=== PATIENT | female | born 1955 | race Caucasian/White ===

== ENCOUNTER → 2016-07-04 | Outpatient (CLI) | payer OTHER ==
[~2016-07-04] MED LIST: FLUO5CRE TOP; FLUT0.15 NAE; METH10TA6 PO
[2016-07-04 16:39] LABS: THYROID STIMULATING HORMONE 0.531 uIu/ml (0.300-4.500)
== END | disposition home or self-care (01) ==
LOC: C.LAB 13:35
PROVIDERS: ATTEND Internal Medicine Endocrinology, Diabetes & Metabolism
DX: E05.90 Thyrotoxicosis, unspecified without thyrotoxic crisis or storm (principal)

== ENCOUNTER 2016-07-24 10:04 | Inpatient (IN) | payer OTHER ==
[2016-07-04 13:38] VITALS: Ht 166.4 cm; Wt 64.6 kg
--- NOTE | 2016-07-04 14:13 | PAT Medication Instructions ---
Service Date Jul 04, 2016. Current Home Medication List Fluorouracil (Topical) (Efudex), 1 APPLN TOP BID Fluticasone Propionate (Nasal) (Flonase Allergy Relief), 2 SPRAY CONOR DAILY PRN for PRN Methimazole (Methimazole), 10 MG PO QAM Medication Instructions For Your Scheduled Surgery - Hold the following medications 24 hours prior to surgery: Fluorouracil (Topical) (Efudex), 1 APPLN TOP BID - Take the following medications the morning of surgery with a sip of water OTHERWISE NOTHING TO EAT OR DRINK AFTER MIDNIGHT: Methimazole (Methimazole), 10 MG PO QAM Fluticasone Propionate (Nasal) (Flonase Allergy Relief), 2 SPRAY CONOR DAILY PRN for PRN If you have any questions please call us at [phone] or [phone] or [phone]
[2016-07-04 15:45] LABS: BASO % 0.5 %; BASO ABS # 0.03 K/uL (0-0.2); COMPLETE YES; EOS % 2.2 %; HEMATOCRIT 46.2 % (37-47); IG% 0.2 %; LYMPH ABS # 1.86 K/uL (1.2-3.4); MEAN CELL VOLUME 89.7 fL (80-100); MEAN CORPUSCULAR HEMOGLOBIN 29.7 pg (25-34); MEAN CORPUSCULAR HGB CONC 33.1 g/dl (32-36); MEAN PLATELET VOLUME 9.7 fL (7.4-10.4); MONO % 4.8 %; NEUT % 58.3 %; PLATELET COUNT 261 K/uL (130-400); RED BLOOD COUNT 5.15 M/uL (4.2-5.4); WHITE BLOOD COUNT 5.47 K/uL (4.8-10.8)
[2016-07-04 16:24] LABS: BUN/CREATININE RATIO 14.6 (10-20); CREATININE 0.69 mg/dl (0.60-1.20); POTASSIUM 3.8 mmol/L (3.5-5.1)
[2016-07-04 16:41] LABS: CALCIUM 9.6 mg/dl (8.5-10.1)
[~2016-07-24] VITALS: Ht 166.4 cm; Wt 64.6 kg
[2016-07-24] VITALS (9 sets, daily range): BP systolic 132–153; BP diastolic 56–83; PULSE 84–116; TEMP 36.4–37; O2SAT 96–100
[~2016-07-24 10:04] MED LIST changes: +CEFAZOLIN 2000 MG/60 ML D5W IV SCH; +LACTATED RINGER'S 1000ML 1,000 ML IV SCH; +LIDOCAINE HCL 2% 2 ML VIAL (20MG/ML) ONE; +MIDAZOLAM HCL 1 MG/ML 2ML VIAL ONE; +ONDANSETRON INJ 2 MG/ML 2 ML VIAL ONE; +PROPOFOL IV EMULSION 10 MG/ML 20 ML VIAL IV ONE
[2016-07-24] MEDS ORDERED: MIDAZOLAM HCL 1 MG/ML 2ML VIAL ONE (10:49)
[2016-07-24] MEDS ORDERED: FENTANYL CITRATE INJ 50 MCG/1 ML 2 ML VIAL ONE (10:50)
[2016-07-24] MEDS ORDERED: HYDROmorphone INJ 2 MG/ML SYR/VIAL ONE (10:50)
--- NOTE | 2016-07-24 11:25 | History & Physical Bridge Note ---
H&P Re-Evaluation Bridge Note: I have examined the patient, reviewed the History & Physical and in the interval since the performance of the History & Physical I have noted the following changes of clinical significance: No changes noted
--- NOTE | 2016-07-24 11:28 | History and Physical ---
History & Physical Date July 24, 2016. Chief Complaint GRAVES DISEASE History of Present Illness The patient is a 61 year old female with complaints of GRAVES DISEASE, MULTINODULAR GOITER, AND COMPRESSIVE SYMPTOMATOLOGY. 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 PSH: S/P SKIN BX, S/P T&A, S/P TUBAL LIGATION Additional History Hepatic Disease: No Endocrine Disorder: No Kidney Disease: No Hypertension: No Heart Disease: No Bleeding Tendencies: No Infectious Diseases: No Allergies Coded Allergies: Adhesives (Verified Allergy, Unknown, REDNESS, ITCHING, IRRITATION, ) Bacitracin (Verified Allergy, Unknown, REDDNESS, IRRITATION, 07/24/16) Molds and Smuts (Verified Allergy, Unknown, SEVERE HEADACHES, 07/24/16) Neomycin (Verified Allergy, Unknown, REDDNESS, IRRITATION, 07/24/16) Polymyxin B (Verified Allergy, Unknown, REDDNESS, IRRITATION, 07/04/16) Home Medications Scheduled Fluorouracil (Topical) (Efudex), 1 APPLN TOP BID Methimazole (Methimazole), 10 MG PO QAM Scheduled PRN Fluticasone Propionate (Nasal) (Flonase Allergy Relief), 2 SPRAY CONOR DAILY PRN for PRN Physical Examination Skin: warm/dry, no rash Neck: supple, no adenopathy, trachea midline, + pertinent finding (R>L MNG WITH R NODULE NEAR THE ISTHMUS) Respiratory/Chest: lungs clear, normal breath sounds, no respiratory distress Cardiovascular: regular rate, rhythm, no edema, no murmur Neurologic/Psych: no motor/sensory deficits, alert, normal reflexes, oriented x 3 Diagnosis GRAVES DISEASE Plan of Treatment TOTAL THYROIDECTOMY
--- NOTE | 2016-07-24 11:30 | Discharge Instructions ---
Discharge Instructions Date of Service July 24, 2016. Admission Reason for Admission: Graves Disease, Hyperthyroidism, Multinodular Goit Discharge Discharge Diagnosis / Problem: SAME Discharge Goals Goal(s): Therapeutic intervention Activity Recommendations Activity Limitations: as noted below 1. KEEP INCISION DRY FOR 1WEEK 2. LIGHT ACTIVITY FOR 2WEEKS 3. ICE TO NECK MUCH TOLERATED FOR 1WEEK 4. NO DRIVING WHILE ON NORCO . Current Hospital Diet Patient's current hospital diet: Discharge Diet Recommended Diet: Regular Diet Pending Studies Studies pending at discharge: no Medical Emergencies . Who to Call and When: Medical Emergencies: If at any time you feel your situation is an emergency, please call 911 immediately. . Non-Emergent Contact Non-Emergency issues call your: Surgeon . . "Provider Documentation" section prepared by Samir Mahmood. . VTE Core Measure Inpt VTE Proph given/why not?: SCD's
[2016-07-24] MEDS ORDERED: THROMBIN 5000 UNITS KIT ONE (11:56)
[2016-07-24] MEDS ORDERED: BACITRACIN OINT 15 GM TUBE ONE (11:56)
[2016-07-24] MEDS ORDERED: LIDOCAINE/EPINEPHRINE 1% 20 ML VIAL ONE (11:56)
[2016-07-24] MEDS ORDERED: EpHEDrine SULFATE INJ 50 MG/ML AMP IV PRN (12:30)
[2016-07-24] MEDS ORDERED: ONDANSETRON INJ 2 MG/ML 2 ML VIAL IV PRN ×2 (12:30→14:00)
[2016-07-24] MEDS ORDERED: ATROPINE SULFATE 0.1 MG/ML 5ML SYR IV PRN (12:30)
[2016-07-24] MEDS ORDERED: SURGICEL ABSORB HEMOSTAT 2IN X 14IN TOP ONE (13:15)
[2016-07-24] MEDS ORDERED: DEXAMETHASONE SOD INJ 4 MG/ML VIAL ONE (13:46)
[2016-07-24] MEDS ORDERED: SUCCINYLCHOLINE CHLORIDE 20 MG/ML 10 ML VIAL IV ONE (13:46)
[2016-07-24] MEDS ORDERED: PROPOFOL IV EMULSION 10 MG/ML 20 ML VIAL IV ONE (13:46)
[2016-07-24] MEDS ORDERED: LIDOCAINE HCL 2% 2 ML VIAL (20MG/ML) ONE (13:46)
[2016-07-24] MEDS ORDERED: LABETALOL HCL IV 5 MG/ML 20ML IV ONE (13:46)
[2016-07-24] MEDS ORDERED: ROCURONIUM BROMIDE 10 MG/ML 5 ML VIAL ONE (13:46)
[2016-07-24] MEDS ORDERED: ONDANSETRON INJ 2 MG/ML 2 ML VIAL ONE (13:46)
[2016-07-24] MEDS ORDERED: LACTATED RINGER'S 1000ML 1,000 ML IV SCH (13:59)
--- NOTE | 2016-07-24 13:59 | [facility] Operative Report ---
Operative Report Operative Date July 24, 2016. Pre-Operative Diagnosis Hyperthyroidism, Graves Disease, Multinodular Goiter Post-Operative Diagnosis SAME Procedure(s) Performed TOTAL THYROIDECTOMY Surgeon DR Samir Mahmood Tractor Crane Operator Surgeon(s) Isabelle Gee Estimated Blood Loss 100ML Findings LARGE MULTINODULAR GOITER Specimens B. Left Thyroid Lobe; single stitch is isthmus, double stitch is superior pole I attest to the content of the Intraoperative Record and any orders documented therein. Any exceptions are noted below.
[2016-07-24] MEDS ORDERED: HYDROCODONE/ACETAMOPHEN 5/325MG TAB PO PRN (14:00)
[2016-07-24] MEDS: FENTANYL CITRATE INJ 50 MCG/1 ML 2 ML VIAL IV PRN ×2 (14:49→14:59)
--- NOTE | 2016-07-24 14:50 | OPERATIVE REPORT ---
DATE OF OPERATION: 07/24/2016 PREOPERATIVE DIAGNOSES: 1. Graves' disease. 2. Multinodular goiter with compressive symptomatology. POSTOPERATIVE DIAGNOSES: 1. Graves' disease. 2. Multinodular goiter with compressive symptomatology. PROCEDURE: Total thyroidectomy. SURGEON: Dr. Mahmood. ASSISTANT OPERATOR: Isabelle Gee PA-C. ESTIMATED BLOOD LOSS: 100 mL. FINDINGS: Hypervascular multinodular gland. SPECIMENS: Right and left thyroid lobe sent separately for permanent pathologic specimen. DRAINS: None. COMPLICATIONS: None. INDICATIONS FOR THE PROCEDURE: The patient is a 61-year-old female with a history of Graves' disease for which her methimazole medication has had varying dosage requirements to control her symptomatology. In addition, she has had progressive enlargement of her thyroid gland with multiple nodules and has compressive symptomatology. After discussing the options with her including continued antithyroid medications versus radioactive iodine versus surgical intervention, the patient has decided to undergo total thyroidectomy and presents for the above-mentioned procedure on an inpatient elective basis. OPERATION AND FINDINGS: DETAILS OF PROCEDURE: After informed consent had been obtained from the patient, the patient was wheeled to the operating room and placed on the operating table in the supine position. Monitors were placed. After induction of general endotracheal anesthesia with a nerve integrity monitor endotracheal tube, the patient's head and neck were gently extended and a marking pen was used to outline the planned incision in a natural skin crease 2 fingerbreadths below the level of the clavicles. The incision was 6 cm in length. 3 mL of 1% lidocaine with 1:100,000 epinephrine was used to inject the skin and subcutaneous tissues overlying the planned incision site. The skin in the neck and chest were then prepped and draped in the usual sterile fashion. A #15 scalpel was then used to make the incision through the skin, subcutaneous tissue, and platysma. Subplatysmal flaps were raised superiorly to the level of thyroid notch and inferiorly to the level of clavicles. The median raphe of the strap muscles was divided using Bovie electrocautery. Due to the size of the gland, the strap muscles were divided transversely using a Harmonic scalpel in order to increase the exposure. The right side was first addressed. The middle thyroid vein as well as superior and inferior thyroid vascular pedicles are divided adjacent to the thyroid capsule using a Harmonic scalpel. Dissection was carried lateral to medial with care to identify and preserve the right recurrent laryngeal nerve as well as superior and inferior parathyroid candidates. The thyroid gland was then at the isthmus using a Harmonic scalpel. Orienting sutures were placed on the right thyroid lobectomy specimen which was sent off for permanent pathological assessment. Left eye was then addressed in a similar fashion. Intraoperative findings were of a multinodular hypervascular gland with a somewhat firm nodule noted on the left hand side at the lateral aspect in the mid pole. Wound was then copiously irrigated and suctioned. Bipolar electrocautery was used to achieve adequate hemostasis. Hemostasis was confirmed with a Valsalva maneuver. Small pieces of Surgicel followed by topical spray thrombin were placed into the bilateral tracheoesophageal grooves for added hemostatic effect. The transversely divided strap muscles were then reapproximated using several simple interrupted 3-0 Vicryl sutures. The strap muscles were then reapproximated in the midline using a simple running interlocked 3-0 Vicryl suture. The platysma was then closed with several deep 4-0 Monocryl sutures. The skin was then closed with a simple running subcuticular 5-0 Monocryl suture. Incision was cleansed and dried. Dermabond was applied to the incision. This marked the end the case. The patient tolerated the procedure well. There were no apparent complications. The patient was extubated and transferred to recovery room in stable condition. I attest to the content of the Intraoperative Record and any orders documented therein. Any exceptio ns are noted below.
--- NOTE | 2016-07-24 15:15 | Anesthesiology Progress Note ---
Anesthesia Post Op Note Date & Time July 24, 2016 at 15:15 Vital Signs Pain Intensity: 3 Vital Signs Past 12 Hours Date Time Temp Pulse Resp B/P Pulse Ox O2 Delivery O2 Flow Rate FiO2 07/24/16 15:05 100 12 151/74 99 Nasal Cannula 2 07/24/16 14:55 91 12 153/86 100 Nasal Cannula 2 07/24/16 14:45 96 12 168/77 100 Mask 10 07/24/16 14:35 91 12 157/73 100 Mask 10 07/24/16 14:28 36.3 95 16 142/84 99 Mask 10 07/24/16 10:48 36.8 84 18 139/56 99 Room Air Notes Mental Status: alert / awake / arousable, participated in evaluation Pt Amnestic to Procedure: Yes Nausea / Vomiting: adequately controlled Pain: adequately controlled Airway Patency, RR, SpO2: stable & adequate BP & HR: stable & adequate Hydration State: stable & adequate Anesthetic Complications: no major complications apparent
[2016-07-24 20:34] LABS: CALCIUM 8.8 mg/dl (8.5-10.1); MAGNESIUM 1.9 mg/dl (1.8-2.4); PHOSPHORUS 3.7 mg/dl (2.5-4.9)
[2016-07-24] MEDS ORDERED: NURSING VERBAL MED ORDER ONE (22:45)
[2016-07-25 02:23] LABS: CALCIUM 8.8 mg/dl (8.5-10.1)
[2016-07-25 02:29] LABS: PHOSPHORUS 3.4 mg/dl (2.5-4.9)
[2016-07-25 03:25] VITALS: BP 127/70; PULSE 108; TEMP 37.1; O2SAT 96
[2016-07-25 05:48] VITALS: BP 127/70; PULSE 108; TEMP 37.1; O2SAT 96
[2016-07-25] MEDS ORDERED: LEVOTHYROXINE 100 MCG TAB PO SCH (06:00)
--- NOTE | 2016-07-25 06:30 | ENT PROGRESS NOTE ---
DATE: 07/25/2016 SUBJECTIVE: Postoperative day #1 status post total thyroidectomy for Graves disease and multinodular goiter with compressive symptomatology. She denies any postoperative problems. She is afebrile and her vital signs are stable. Her voice is normal. Her neck incision is clean, dry and intact with Dermabond in place and no evidence of hematoma. Her postoperative laboratory examinations are completely normal with a calcium of 8.8. The patient is postoperative day #1 status post total thyroidectomy. She will need to be discharged to home this morning. Follow up next Friday.
--- NOTE | 2016-07-25 07:24 | DISCHARGE SUMMARY ---
HOSPITAL COURSE: The patient is a 61-year-old female with Grave's disease and multinodular goiter who has had problems with varying doses of methimazole and decided on surgical treatment of her Grave's disease, especially with her progressive enlargement of her thyroid gland leading to compressive symptoms. She underwent total thyroidectomy on 07/24/2016 with intraoperative findings of a very large multinodular hypervascular gland with a somewhat firm nodule on the left midpole laterally. Postoperatively she did well with no complications. Her laboratory examinations were unremarkable. She was discharged to home on postoperative day #1 with new medications of Synthroid 100 mcg daily as well as [place] 5 mg/325 mg 1-2 tablets p.o. q.4 hours p.r.n. with 30 tablets given. She is to keep her incision dry for one week and keep ice on it as much as possible during that time. She is to call my office if she develops any peroral or digital numbness or paresthesias and/or muscle spasms or cramps. She has an appointment on Friday of next week for her first postoperative follow-up appointment.
== END 2016-07-25 06:45 | disposition home or self-care (01) | DRG 627 ==
LOC: ENRESERVDT → ENRESERVTM → C.ACU 10:04 → C.MSW 14:03
PROC: 0GTG0ZZ Resection of Left Thyroid Gland Lobe, Open Approach (ICD-10-PCS; principal; 2016-07-24 11:45)
PROC: 0GTH0ZZ Resection of Right Thyroid Gland Lobe, Open Approach (ICD-10-PCS; principal; 2016-07-24 11:45)
DX: E05.20 Thyrotoxicosis with toxic multinodular goiter without thyrotoxic crisis or storm (principal); Z98.51 Tubal ligation status; Z88.1 Allergy status to other antibiotic agents; Z88.3 Allergy status to other anti-infective agents; Z79.899 Other long term (current) drug therapy; Z91.048 Other nonmedicinal substance allergy status; Z88.8 Allergy status to other drugs, medicaments and biological substances

== ENCOUNTER → 2016-08-05 | Outpatient (CLI) | payer OTHER ==
[~2016-08-05] MED LIST changes: -CEFAZOLIN 2000 MG/60 ML D5W IV SCH; -LACTATED RINGER'S 1000ML 1,000 ML IV SCH; -LIDOCAINE HCL 2% 2 ML VIAL (20MG/ML) ONE; -METH10TA6 PO; -MIDAZOLAM HCL 1 MG/ML 2ML VIAL ONE; -ONDANSETRON INJ 2 MG/ML 2 ML VIAL ONE; -PROPOFOL IV EMULSION 10 MG/ML 20 ML VIAL IV ONE
== END | disposition home or self-care (01) ==
LOC: C.PAPS 14:00
PROVIDERS: ATTEND Obstetrics & Gynecology
DX: Z01.419 Encounter for gynecological examination (general) (routine) without abnormal findings (principal)